=== PATIENT | male | born 1960 | race Caucasian/White ===

== ENCOUNTER 2019-07-04 18:58 | Emergency (ER) | payer MEDICAID, MEDICARE, OTHER ==
[~2019-07-04] VITALS: Ht 180.3 cm; Wt 81.6 kg
[2019-07-04 19:12] VITALS: BP 151/102
[2019-07-04] MEDS ORDERED: LISINOPRIL5 MG ORAL (19:12)
[2019-07-04] MEDS ORDERED: HYDROCHLOROTH12.5 M2 ORAL (19:12)
--- NOTE | 2019-07-04 19:12 | NUR ---
ED Nurse Note: Patient walked in to ED c/o mechanical fall x2 days. Reports pain on right shoulder. Has history of hip replacement. Denies injury to head or KO. No SOB. HR is 125. MD notified.
--- NOTE | 2019-07-04 19:23 | NUR ---
ED Nurse Note: Md at bedside.
[2019-07-04] MEDS ORDERED: oxyCODONE HCL/Acetaminophen 5/325mg PO ONE (19:30)
--- NOTE | 2019-07-04 19:42 | NUR ---
ED Nurse Note: Xray at bedside.
--- NOTE | 2019-07-04 20:52 | Diagnostic Imaging Report ---
EXAM: XR Right Hip With Pelvis When Performed, 1 View CLINICAL HISTORY: TRAUMA TECHNIQUE: Frontal view of the right hip, with pelvis when performed. COMPARISON: No relevant prior studies available. FINDINGS: Patient status post total left hip replacement. No evidence of acute right hip fracture or dislocation.
--- NOTE | 2019-07-04 20:53 | Diagnostic Imaging Report ---
EXAM: XR Right Shoulder Complete, 2 or More Views CLINICAL HISTORY: TRAUMA TECHNIQUE: Two or more views of the right shoulder. COMPARISON: No relevant prior studies available. FINDINGS: Diffuse osteopenia. No evidence of right shoulder fracture or dislocation.
--- NOTE | 2019-07-04 20:55 | Diagnostic Imaging Report ---
EXAM: XR Chest, 1 View CLINICAL HISTORY: TRAUMA TECHNIQUE: Frontal view of the chest. COMPARISON: No relevant prior studies available. FINDINGS: The cardiac and mediastinal silhouettes are unremarkable. Lungs are mildly hyperinflated consistent with COPD. Negative for parenchymal consolidation, pneumothorax or pleural fluid collections.
--- NOTE | 2019-07-04 21:37 | Emergency Room Report ---
History of Present Illness General Chief Complaint: Multiple Trauma/Fall Source: Patient Present Illness HPI The patient slipped and fell 2 days ago. He landed on his right arm. He has been unable to use his right arm since that time with shoulder pain. He denies any numbness. He did not hit his head and there was no loss of consciousness. He also strained his right leg. There is medial thigh tenderness there. He rates the pain eight 8/10. It is constant and aching but worse when he tries to move his arm. The pain in his thigh is much less. He has not taken any medication. The patient is left-handed. Patient is HIV positive but CD4 counts and viral load are controlled. Denies any other somatic complaints at this time. Allergies: Coded Allergies: No Known Allergies (Unverified , 07/04/19) Patient History Past Medical History: see triage record Past Surgical History: other - Left hip replacement Social History: Denies: smoking, alcohol use, drug use Social History Narrative Semiretired Reviewed Nursing Documentation: PMH: Agreed; PSxH: Agreed Nursing Documentation-PMH Past Medical History: No History, Except For Hx Hypertension: Yes Review of Systems Constitutional: Denies: fever Cardiovascular: Denies: chest pain Gastrointestinal: Denies: abdominal pain Musculoskeletal: Reports: see HPI Skin: Denies: rash Neurological: Reports: see HPI Hematologic/Lymphatic: Reports: see HPI Physical Exam Vital Signs Date Time Temp Pulse Resp B/P (MAP) Pulse Ox O2 Delivery O2 Flow Rate FiO2 07/04/19 19:06 98.1 123 14 151/102 (118) 97 Room Air Sp02 EP Interpretation: reviewed, normal General Appearance: well appearing, no apparent distress, GCS 15 Head: normocephalic, atraumatic Eyes: bilateral eye normal inspection, bilateral eye PERRL, bilateral eye EOMI ENT: moist mucus membranes Neck: full range of motion Respiratory: chest non-tender, lungs clear, normal breath sounds Cardiovascular #1: regular rate, rhythm, no edema Cardiovascular #2: 2+ radial (R) - Good capillary refill Gastrointestinal: normal inspection Genitourinary: no CVA tenderness Musculoskeletal: gait/station normal, back normal, tenderness - Right medial thigh, decreased range of mation - Right shoulder with passive range of motion tenderness and unable to lift arm without pain, other - Right elbow and wrist nontender Neurologic: alert, distal neuro normal, oriented x3 Psychiatric: mood/affect normal Skin: normal color, no rash, warm/dry Medical Decision Making Diagnostic Impression: Primary Impression: Rotator cuff injury Qualified Codes: S46.001A - Unspecified injury of muscle(s) and tendon(s) of the rotator cuff of right shoulder, initial encounter Additional Impression: Muscle strain of lower extremity Qualified Codes: S86.911A - Strain of unspecified muscle(s) and tendon(s) at lower leg level, right leg, initial encounter ER Course Patient presents 2 days post fall with right shoulder and right medial thigh tenderness. Differential includes fracture, strain, rotator cuff injury, muscle strain medial right thigh amongst others. X-rays are indicated. Patient requests pills instead of injection for pain. X-rays with osteopenia but no fractures. Sling applied by tech. Position excellent with relief of pain. Distal neurovascular checked by me and normal. Discussed findings with patient and need for phone follow-up. Patient stable for outpatient observation and treatment. Other X-Ray Diagnostic Results Other X-Ray Diagnostic Results #1: X-Ray ordered: Right shoulder # of Views/Limited Vs Complete: 3 View Indication: Pain EP Interpretation: Yes Interpretation: no dislocation, no soft tissue swelling, no fractures, other - Osteopenia Impression: Other Electronically Signed by: Electronically signed by Butch Houston MD Other X-Ray Diagnostic Results #2: X-Ray ordered: AP pelvis # of Views/Limited Vs Complete: 1 View Indication: Pain Interpretation: no dislocation, no soft tissue swelling, no fractures, other - Left hip replacement Impression: No acute disease Electronically Signed by: Electronically signed by Butch Houston MD Last Vital Signs Date Time Temp Pulse Resp B/P (MAP) Pulse Ox O2 Delivery O2 Flow Rate FiO2 07/04/19 21:50 98.5 70 15 131/90 99 Room Air Status: improved Disposition: HOME, SELF-CARE Condition: Improved Scripts Tramadol Hcl* (ULTRAM*) 50 Mg Tablet 50 MG ORAL Q6H PRN for For Pain, #10 TAB 0 Refills Prov: Butch Houston MD 07/04/19 Ibuprofen* (MOTRIN*) 600 Mg Tablet 600 MG ORAL Q6H PRN for For Pain, #20 TAB 0 Refills Prov: Butch Houston MD 07/04/19 Referrals: NON PHYSICIAN (PCP) Butch Houston MD Jul 04, 2019 21:37
[2019-07-04] MEDS ORDERED: TRAMADOL HCL50 MG ORAL (21:38)
[2019-07-04] MEDS ORDERED: IBUPROFEN600 MG ORAL (21:38)
[2019-07-04 21:50] VITALS: BP 131/90
--- NOTE | 2019-07-04 21:50 | NUR ---
ED Nurse Note: Pt cleared by ERMD for discharge. DC instructions/prescription was given and explained to pt and verbalized understanding of teachings. All medical deviecs such as ID band removed. Pt is AAO x4, ambulatory and left with all personal belongings. Accompanied by s/o.
== END 2019-07-04 21:50 | disposition home or self-care (01) ==
LOC: EMR 20:14
DX: S46.001A Unspecified injury of muscle(s) and tendon(s) of the rotator cuff of right shoulder, initial encounter (principal); S86.911A Strain of unspecified muscle(s) and tendon(s) at lower leg level, right leg, initial encounter; B20 Human immunodeficiency virus [HIV] disease; I10 Essential (primary) hypertension; W01.0XXA Fall on same level from slipping, tripping and stumbling without subsequent striking against object, initial encounter; Y93.9 Activity, unspecified; Y92.9 Unspecified place or not applicable; Z96.642 Presence of left artificial hip joint
CPT/HCPCS: 71045; 73521; 99284